=== PATIENT | male | born 1985 | race Caucasian/White ===

== ENCOUNTER 2018-01-19 20:14 | Emergency (ER) | payer MEDICAID ==
[~2018-01-19] VITALS: Ht 180.3 cm; Wt 81.8 kg
[2018-01-19] MEDS ORDERED: LIDOCAINE/PF 1% 2 ML VIAL IM ONE (22:00)
[2018-01-19] MEDS ORDERED: CefTRIAXone SODIUM 1 GM/VIAL IM ONE (22:00)
[2018-01-19] MEDS ORDERED: KETOROLAC TROMETHAMINE 60 MG/2 ML VIAL IM ONE (22:00)
[2018-01-19 22:20] LABS: BASOPHILS % (AUTO) 0.3 % (0.0-2.0); EOSINOPHILS % (AUTO) 0.7 % (1.0-6.0); HEMATOCRIT 38.7 % (41-53); LYMPHOCYTES # (AUTO) 1.8 K/uL (1.0-4.8); LYMPHOCYTES % (AUTO) 13.2 % (22.0-44.0); MEAN CORPUSCULAR HEMOGLOBIN 29.4 pg (26.0-34.0); MEAN CORPUSCULAR HGB CONC 33.6 G/dL (31.0-37.0); MEAN CORPUSCULAR VOLUME 88 fL (80-100); MONOCYTES % (AUTO) 7.3 % (2.0-9.0); NEUTROPHILS # (AUTO) 10.8 K/uL (1.8-7.7); NEUTROPHILS % (AUTO) 78.5 % (40.0-70.0); PLATELET COUNT (AUTO) 435 K/uL (150-450); RED BLOOD CELL COUNT(AUTO) 4.42 MIL/uL (4.50-5.90); RED CELL DISTRIBUTION WIDTH 13.8 % (11.5-14.5)
[2018-01-19 22:33] LABS: GLUCOSE,POINT OF CARE 51 MG/DL (70-110)
[2018-01-19 23:18] LABS: GLUCOSE,POINT OF CARE 121 MG/DL (70-110)
[2018-01-20 02:11] VITALS: BP 127/73
== END 2018-01-20 02:20 | disposition home or self-care (01) ==
LOC: EMS 20:15
DX: S90.812A Abrasion, left foot, initial encounter (principal); S90.811A Abrasion, right foot, initial encounter; L03.116 Cellulitis of left lower limb; L03.115 Cellulitis of right lower limb; F17.210 Nicotine dependence, cigarettes, uncomplicated; X58.XXXA Exposure to other specified factors, initial encounter; Y93.89 Activity, other specified; Y92.89 Other specified places as the place of occurrence of the external cause; Y99.8 Other external cause status
CPT/HCPCS: 36415; 82948; 82962; 85025; 96372; 99283; J0696; J1885; J3490

== ENCOUNTER 2024-03-15 17:21 | Emergency (ER) | payer MEDICAID, OTHER ==
[~2024-03-15] VITALS: Ht 180.3 cm; Wt 81.8 kg
[2024-03-15 17:27] VITALS: BP 124/73; PULSE 101; RESP 16; TEMP 97.9; O2SAT 100
[2024-03-15] MEDS: IBUPROFEN 600 MG TABLET PO ONE (19:43)
[2024-03-15] MEDS: SULFAMETHOX/TRIMETH DS 800-160 MG/TABLET PO ONE (19:43)
[2024-03-15] MEDS: CEPHALEXIN MONOHYDRATE 500 MG CAPSULE PO ONE (19:43)
[2024-03-15] MEDS ORDERED: SULF-261 PO (19:53)
[2024-03-15] MEDS ORDERED: CEPH-558 PO (19:53)
== END 2024-03-15 20:02 | disposition home or self-care (01) ==
LOC: EMS 17:21
DX: M79.642 Pain in left hand (principal); F17.210 Nicotine dependence, cigarettes, uncomplicated; Z87.442 Personal history of urinary calculi
CPT/HCPCS: 99284; Z7502; Z7610